=== PATIENT | female | born 1995 | race Caucasian/White ===

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

== ENCOUNTER 2017-07-06 08:26 | Emergency (ER) | payer MEDICAID, OTHER ==
[2017-07-06] MEDS ORDERED: IBUPROFEN 600 MG TAB PO ONE (08:44)
[2017-07-06 08:45] VITALS: BP 124/69
[2017-07-06] MEDS ORDERED: DEXAMETHASONE 4 MG TAB PO ONE (08:54)
[2017-07-06] MEDS ORDERED: KETOROLAC 30 MG/1 ML SDV IM ONE (08:54)
--- NOTE | 2017-07-06 09:07 | EDPHY ---
H & P Time Seen by Provider: 07/06/17 08:31 HPI/ROS: CHIEF COMPLAINT: Swollen tonsils HISTORY OF PRESENT ILLNESS: This is a 21-year-old female who reports history of frequent tonsillitis presenting with complaints of sore throat and swollen tonsils for 6 days. Not associated with upper respiratory infection symptoms. No fever. Patient states that she has been using ibuprofen on a regular basis with minimal relief. States she sought vesicles on the tonsils several days ago which have now cleared. She has been using salt water gargles as well as drinking warm liquid an attempt to relieve her discomfort. Patient is also complaining of discomfort in her anterior neck secondary to swollen lymph nodes. No fevers or chills, no vomiting, no chest pain, no shortness of breath. No history of reflux, or GERD. No headache. REVIEW OF SYSTEMS: Aside from elements discussed in the HPI, a comprehensive 10-point review of systems was reviewed and is negative. PAST MEDICAL HISTORY: History of tonsillitis. SOCIAL HISTORY: No new sexual partners. Nonsmoker. Occasional alcohol. No marijuana. Primary care physician is at [facility]. VITAL SIGNS: see nurse's notes. Afebrile. GENERAL: Well-developed, well-nourished, in no acute respiratory distress. HEENT: Atraumatic Eyes: PERRL, EOMI, no conjunctival injection. Ears: TM clear bilaterally. Nose: No discharge. Mouth: moist mucous membranes. Pharynx: Erythematous tonsils, slightly enlarged, no exudates. Uvula is midline. No abscess. NECK: Supple, positive right submandibular adenopathy. No meningismus. Negative Kernig's and Brudzinski's. LUNGS: Clear to auscultation bilaterally, no wheezes, rhonchi or rales. CARDIAC: Regular rate and rhythm, no rubs, murmurs or gallops. ABDOMEN: Soft, nontender, bowel sounds normal. BACK: No CVA tenderness. EXTREMITIES: Normal, no edema, FROM. NEURO: Alert and oriented, grossly nonfocal. SKIN: Warm and dry, no rash. PSYCHIATRIC: Normal mentation, no agitation. Smoking Status: Never smoked Constitutional: Initial Vital Signs Temperature (C) 36.9 C 07/06/17 08:32 Heart Rate 92 07/06/17 08:32 Respiratory Rate 16 07/06/17 08:32 Blood Pressure 124/69 H 07/06/17 08:32 O2 Sat (%) 98 07/06/17 08:32 O2 Delivery Mode Room Air Allergies/Adverse Reactions: No Known Allergies Allergy (Verified 07/06/17 08:28) Home Medications: Medication Instructions Recorded Azithromycin 250 - 500 mg PO DAILY 5 Days #6 07/06/17 tablet Dexamethasone [Decadron] 6 mg PO DAILY #1 tablet 07/06/17 Hydrocodone/APAP 5/325 [[place] 1 tab PO Q6H PRN #8 tab 07/06/17 5/325 (RX)] Loestrin Fe 1-20 Tablet 07/06/17 Medical Decision Making ED Course/Re-evaluation: Will treat with Toradol 30 mg IM, Decadron 8 mg PO. Discharged on a single dose of Decadron tomorrow, azithromycin, and short course of hydrocodone. Encouraged follow-up with ENT. Differential Diagnosis: Differential diagnosis for the patient's sore throat was considered including but not limited to viral pharyngitis, bacterial pharyngitis, tonsillitis, tonsillar abscess, peritonsillar abscess, foreign body, epiglottitis, bacterial tracheitis. - Data Points Medications Given: Discontinued Medications Dexamethasone (Decadron) 8 mg PO EDNOW ONE Stop: 07/06/17 08:55 Last Admin: 07/06/17 09:02 Dose: 8 mg Departure - Departure Disposition: Home, Routine, Self-Care Condition: Good Instructions: Tonsillitis (ED) Additional Instructions: Please take a single dose of Decadron tomorrow. Use hydrocodone as needed for severe pain. Adult Pain Control: We recommend Acetaminophen (Tylenol) and Ibuprofen (Motrin,Advil) for pain and fever control. When fever is high or pain severe, both drugs can be used at the same time, but at different intervals. Please note the time differences. Your dose is: Acetaminophen 650 mg every 4 to 6 hours Ibuprofen 600mg every 8 hours with food Note: do not take Acetaminophen with Hydrocodone (Vicodin, Lortab) or Oycodone (Percocet). These medications also contain Acetaminophen. No more than 3000mg of Acetaminophen should be taken in 24 hours (for an adult). Take azithromycin as prescribed. Continue with salt water gargles. Follow up with ENT as referred. Return to the emergency department if you are worsening despite the above treatment. Referrals: Masoud Koch MD [Medical Doctor] - As per Instructions Prescriptions: Azithromycin 250 - 500 mg PO DAILY 5 Days #6 tablet Dexamethasone [Decadron] 6 mg PO DAILY #1 tablet Hydrocodone/APAP 5/325 [[place] 5/325 (RX)] 1 tab PO Q6H PRN #8 tab PRN Reason: Pain
== END 2017-07-06 09:20 | disposition home or self-care (01) ==
LOC: CED 08:26
DX: J03.90 Acute tonsillitis, unspecified (principal)
CPT/HCPCS: J1885